=== PATIENT | male | born 1950 | race Caucasian/White ===

== ENCOUNTER 2019-08-24 18:37 | Inpatient (IN) | payer MEDICARE ==
[~2019-08-24] VITALS: Ht 172.7 cm; Wt 63.5 kg
[2019-08-24 18:51] VITALS: BP 151/66
--- NOTE | 2019-08-24 18:55 | Emergency Room Report ---
History of Present Illness General Chief Complaint: chest pain Source: Patient Present Illness HPI Patient is a 69-year-old male presents after increased left-sided chest discomfort. Patient reports having acute onset of sharp pain. He states this is been present for several hours constant. He reports having some waxing and waning to the pain. He reports having taken multiple medications without any relief of the pain. Patient onset approximately 1:00 in the afternoon. He had taken Pepcid as well as aspirin and nitroglycerin without any relief. He denies any vomiting. He reports having a prior history of smoking. He denies any prior history of hypertension or cardiac disease. He has had prior orthopedic surgeries multiple times in the past but has not had any recent surgery. He has chronic leg pain but denies any new pain or swelling Allergies: Coded Allergies: TETRACYCLINES (Verified Allergy, Intermediate, 08/24/19) OXYTETRACYCLINE (Verified Allergy, Unknown, 08/24/19) Patient History Past Medical History: see triage record Past Surgical History: other - neck, back and shoulder surgeries Reviewed Nursing Documentation: PMH: Agreed; PSxH: Agreed Review of Systems Respiratory: Reports: see HPI Cardiovascular: Reports: see HPI All Other Systems: limited Physical Exam Sp02 EP Interpretation: reviewed, normal General Appearance: normal inspection, well appearing, no apparent distress, alert, GCS 15, non-toxic Head: atraumatic ENT: normal ENT inspection, hearing grossly normal, normal voice Neck: normal inspection, full range of motion, supple, no bony tend Respiratory: normal inspection, lungs clear, normal breath sounds, no respiratory distress, no retraction, no wheezing Cardiovascular #1: regular rate, rhythm, no edema Gastrointestinal: normal inspection, normal bowel sounds, non tender, soft, no guarding, no hernia Genitourinary: no CVA tenderness Musculoskeletal: normal inspection, back normal, normal range of motion Neurologic: alert, motor strength/tone normal, pocket setter lockstitch III-XII nml as tested, oriented x3, responsive, speech normal, normal inspection Psychiatric: normal inspection, judgement/insight normal, mood/affect normal Skin: no rash Medical Decision Making Diagnostic Impression: Primary Impression: Chest pain in adult Additional Impressions: Former smoker High cholesterol Chronic back pain Chronic neck pain ER Course Patient presented for increased chest pain. Differential diagnosis include was not limited to myocardial infarction, pneumothorax, pulmonary embolism, esophageal spasm among others. Because of complexity of patient's case laboratory tests and imaging studies were ordered. EKG interpreted by me showed normal sinus rhythm with a rate of [address] or T wave changes. Patient was noted to have equal breath sounds and has normal oxygen saturation.Patient was given aspirin as he does not recall how much he took at home.Patient was discussed with Dr. Arroyo for inpatient management. Patient was noted to have recurrence of pain during the emergency department course. He did have some improvement with nitroglycerin. CT angios of the chest was ordered. Patient does report having some prior history of esophageal spasm. Patient's initial troponin was noted to be negative as was her initial repeat. Given the patient's intermittent history of symptoms patient will be admitted for further evaluation. Labs Test 08/24/19 18:55 White Blood Count 8.6 K/UL (4.8-10.8) Red Blood Count 4.49 M/UL (4.70-6.10) Hemoglobin 13.3 G/DL (14.2-18.0) Hematocrit 37.7 % (42.0-52.0) Mean Corpuscular Volume 84 FL (80-99) Mean Corpuscular Hemoglobin 29.7 PG (27.0-31.0) Mean Corpuscular Hemoglobin Concent 35.4 G/DL (32.0-36.0) Red Cell Distribution Width 10.3 % (11.6-14.8) Platelet Count 221 K/UL (150-450) Mean Platelet Volume 6.4 FL (6.5-10.1) Neutrophils (%) (Auto) 63.7 % (45.0-75.0) Lymphocytes (%) (Auto) 24.3 % (20.0-45.0) Monocytes (%) (Auto) 8.5 % (1.0-10.0) Eosinophils (%) (Auto) 2.0 % (0.0-3.0) Basophils (%) (Auto) 1.5 % (0.0-2.0) D-Dimer 0.20 mg/L FEU (0.00-0.49) Urine Color Pale yellow Urine Appearance Clear Urine pH 8 (4.5-8.0) Urine Specific [place] 1.010 (1.005-1.035) Urine Protein Negative (NEGATIVE) Urine Glucose (UA) Negative (NEGATIVE) Urine Ketones Negative (NEGATIVE) Urine Blood Negative (NEGATIVE) Urine Nitrite Negative (NEGATIVE) Urine Bilirubin Negative (NEGATIVE) Urine Urobilinogen Normal MG/DL (0.0-1.0) Urine Leukocyte Esterase Negative (NEGATIVE) Sodium Level 139 MMOL/L (136-145) Potassium Level 3.7 MMOL/L (3.5-5.1) Chloride Level 102 MMOL/L (98-107) Carbon Dioxide Level 33 MMOL/L (21-32) Anion Gap 5 mmol/L (5-15) Blood Urea Nitrogen 23 mg/dL (7-18) Creatinine 1.1 MG/DL (0.55-1.30) Estimat Glomerular Filtration Rate > 60 mL/min (>60) Glucose Level 106 MG/DL (74-106) Calcium Level 9.2 MG/DL (8.5-10.1) Total Bilirubin 0.2 MG/DL (0.2-1.0) Aspartate Amino Transf (AST/SGOT) 29 U/L (15-37) Alanine Aminotransferase (ALT/SGPT) 39 U/L (12-78) Alkaline Phosphatase 91 U/L (46-116) Troponin I 0.000 ng/mL (0.000-0.056) Pro-B-Type Natriuretic Peptide 46 pg/mL (0-125) Total Protein 7.0 G/DL (6.4-8.2) Albumin 3.8 G/DL (3.4-5.0) Globulin 3.2 g/dL Albumin/Globulin Ratio 1.2 (1.0-2.7) Lipase 158 U/L (73-393) EKG Diagnostic Results Rate: normal Rhythm: NSR ST Segments: no acute changes Status: improved Disposition: ADMITTED INPATIENT Condition: Stable Oscar Lee MD Aug 24, 2019 18:55
--- NOTE | 2019-08-24 18:59 | NUR ---
ED Nurse Note: PT WALKED IN DUE TO LEFT SIDE CP AND NON RADIATING SINCE 0130 THIS AFTERNOON. DENIES N/V OR DIZZINESS. AAO X4, AMBULATORY WITH NO RESPIRATORY DISTRESS. SPEAKS IN FULL SENTENCES. AT THE BED SIDE.
[2019-08-24] MEDS ORDERED: Omnipaue 350mg/ml 100ml vial INJ PRN (19:00)
[2019-08-24] MEDS ORDERED: Aspirin Baby 81mg ORAL ONE (19:00)
[2019-08-24 19:13] LABS: BASOPHILS % (AUTO) 1.5 % (0.0-2.0); HEMATOCRIT 37.7 % (42.0-52.0); HEMOGLOBIN 13.3 G/DL (14.2-18.0); LYMPHOCYTES % (AUTO) 24.3 % (20.0-45.0); MEAN CORPUSCULAR VOLUME 84 FL (80-99); MONOCYTES % (AUTO) 8.5 % (1.0-10.0); NEUTROPHILS % (AUTO) 63.7 % (45.0-75.0); PLATELET COUNT 221 K/UL (150-450); RED BLOOD COUNT 4.49 M/UL (4.70-6.10); RED CELL DISTRIBUTION WIDTH 10.3 % (11.6-14.8); WHITE BLOOD COUNT 8.6 K/UL (4.8-10.8)
--- NOTE | 2019-08-24 19:13 | NUR ---
HAND-OFF: Report given to ANTWAN GHOSH.
[2019-08-24] MEDS ORDERED: Nitroglycerin Subl 0.4mg tab SL PRN (19:15)
[2019-08-24] MEDS ORDERED: Morphine Sulfate 4mg/ml Inj (IV USE ONLY) IVP ONE (19:15)
[2019-08-24 19:29] LABS: ANION GAP 5 mmol/L (5-15); APPEARANCE,URINE CLEAR; BILIRUBIN, URINE NEGATIVE (NEGATIVE); BLOOD UREA NITROGEN 23 mg/dL (7-18); CALCIUM 9.2 MG/DL (8.5-10.1); CARBON DIOXIDE 33 MMOL/L (21-32); CHLORIDE 102 MMOL/L (98-107); COLOR,URINE PALE YELLOW; CREATININE 1.1 MG/DL (0.55-1.30); GLUCOSE, URINE (UA) NEGATIVE (NEGATIVE); KETONES,URINE NEGATIVE (NEGATIVE); LEUKOCYTE ESTERASE ,URINE NEGATIVE (NEGATIVE); NITRITE,URINE NEGATIVE (NEGATIVE); PH,URINE 8 (4.5-8.0); POTASSIUM 3.7 MMOL/L (3.5-5.1); PROTEIN,URINE NEGATIVE (NEGATIVE); SODIUM 139 MMOL/L (136-145); UROBILINOGEN,URINE NORMAL MG/DL (0.0-1.0)
[2019-08-24 19:42] LABS: ALANINE AMINOTRANSFERASE 39 U/L (12-78); ALBUMIN 3.8 G/DL (3.4-5.0); ALBUMIN/GLOBULIN RATIO 1.2 (1.0-2.7); ALKALINE PHOSPHATASE 91 U/L (46-116); ASPARTATE AMINO TRANSFERASE 29 U/L (15-37); BILIRUBIN,TOTAL 0.2 MG/DL (0.2-1.0)
[2019-08-24 20:10] VITALS: BP 136/66
--- NOTE | 2019-08-24 20:12 | NUR ---
Face sheet, EKG, MD dictation and clinicals faxed to [phone] (January-nurse housing case manager) as requested.
--- NOTE | 2019-08-24 20:42 | NUR ---
ER Nurse Note: All orders completed per ERMD orders. Pt back from CT, awaiting results. Pt a&ox4, VSS, RA, no signs of distress. Pt denies pain after being given nitro. Pt ambulatory, skin intact. Awaiting placement. All safety measures met; will continue to montior.
--- NOTE | 2019-08-24 21:10 | Diagnostic Imaging Report ---
EXAM: XR Chest, 1 View CLINICAL HISTORY: CP TECHNIQUE: Frontal view of the chest. COMPARISON: No relevant prior studies available. FINDINGS: Lungs: No consolidation or mass. Pleural space: No acute findings Heart: No cardiomegaly. Bones/joints: No acute findings. IMPRESSION: No acute cardiopulmonary process.
[2019-08-24 22:42] VITALS: BP 124/62
--- NOTE | 2019-08-24 22:46 | Diagnostic Imaging Report ---
EXAM: CT Angiography Chest With Intravenous Contrast CLINICAL HISTORY: CP TECHNIQUE: Axial computed tomographic angiography images of the chest with intravenous contrast. CTDI is 41 mGy and DLP is 622 mGy-cm. One or more of the following dose reduction techniques were used: automated exposure control, adjustment of the mA and/or kV according to patient size, use of iterative reconstruction technique. MIP reconstructed images were created and reviewed. COMPARISON: No relevant prior studies available. FINDINGS: Pulmonary arteries: No filling defects. Aorta: No thoracic aortic aneurysm. Lungs: No mass. Lingular subsegmental atelectasis. Pleural space: No pneumothorax. No significant effusion. Heart: No cardiomegaly. No pericardial effusion. Bones/joints: No acute fracture or dislocation. Soft tissues: Tiny stones near the gallbladder neck. Lymph nodes: No enlarged lymph nodes. IMPRESSION: 1. No pulmonary embolism. 2. Lingular subsegmental atelectasis. 3. Tiny gallstones in the neck.
--- NOTE | 2019-08-24 22:51 | NUR ---
ER Nurse Note: Report given to AUGIE Dickey in tele for continutiy of care. Pt aware of admission. Pt a&ox4, VSS, no signs of distress. All safety measures met; all belongings taken with pt.
[2019-08-24] MEDS: Morphine Sulfate 4mg/ml Inj (IV USE ONLY) IVP ONE (23:15)
[2019-08-25] VITALS: BP 115/57
[2019-08-25] MEDS ORDERED: oxyCODONE HCL/Acetaminophen 5/325mg ORAL PRN
--- NOTE | 2019-08-25 | NUR ---
NURSE NOTES: Pt arrived via gurney from ER. Got report from Radha GHOSH. Pt in stable condition. States chest pain is decreased after getting medications in the ER. Denies any n/v or SOB. Pt is fully oriented and able to answer all of my questions. Pt is ambulatory with steady gait. No s/s of distress or discomfort noted. No skin issues noted. insulation worker placed on pt running Sinus Rhythm on the monitor. Belongings list verified. VSS T:97.2 HR:63 R:16 BP:115/57 O2:98% on room air. Pt resting in bed comfortably. Bed in low and locked position, call light within reach, bedside table within reach. Continue to monitor. Orders given and placed by Dr. Arroyo.
[2019-08-25] MEDS: Morphine Sulfate 4mg/ml Inj (IV USE ONLY) IVP ONE (00:04)
[2019-08-25 04:00] VITALS: BP 113/60
--- NOTE | 2019-08-25 07:20 | NUR ---
HAND-OFF: Report given to Quinten GHOSH.
--- NOTE | 2019-08-25 07:21 | NUR ---
NURSE NOTES: Received report from AUGIE Lucio. Patient in bed resting, no active cardiac, respiratory distress noticed at this time. Patient on room air, AOx4, SR with HR 61, IV on right AC 18G, asymptomatic, patent, intact, patient denies pain at this time. Bed in lowest position, side rails upx3, call light within reach. Will continue to monitor.
[2019-08-25 08:00] VITALS: BP 135/73
[2019-08-25] MEDS ORDERED: celeBREX 200mg Cap **SURGERY PATIENTS ONLY ORAL SCH (09:00)
--- NOTE | 2019-08-25 11:35 | NUR ---
NURSE NOTES: Patient discharged to home per Dr. Arroyo. Per continue med which patient is taking at home. ID removed and placed in shredder, IV removed, statistical reporting analyst returned to electron beam photo mask technician. Family member at the bedside, taking patient via private vehicle. Patient discharged with all belongings, discharge instruction given, stated understanding of education and instruction.
--- NOTE | 2019-08-25 20:45 | History and Physical Report ---
DATE OF ADMISSION: 08/24/2019 HISTORY OF PRESENT ILLNESS: This is a 69-year-old male, who presented to hospital with left-sided chest discomfort. He stated this started yesterday after he turned over left side in bed. He was in constant pain throughout the ER stay, and this morning also, he reports ongoing pain. Overnight, he has had a correctional guard, which shows normal heart rate and rhythm without any abnormalities. His EKG is within normal range and troponin x2 is negative. The patient has a history of multiple previous lumbar surgeries and epidurals, and has underlying NSAIDs in the past. He has been cutting down NSAIDs, as he feels that his kidney function has deteriorated. He is now taking Pepcid only along with Tylenol and turmeric and he is avoiding NSAIDs. The patient has a history of GERD and has taken Protonix in the past. He has had endoscopy also, which shows inflamed esophagus. The patient denies any history of any medical conditions except as detailed above. No history of hypertension, diabetes mellitus, CAD, or asthma. ALLERGIES: Tetracycline. PAST SURGICAL HISTORY: Multiple back operations as well as shoulder surgery. REVIEW OF SYSTEMS: The patient denies any headaches, hematemesis, melena, or hematochezia. PHYSICAL EXAMINATION: GENERAL: Reveals a 69-year-old male. VITAL SIGNS: Blood pressure 130/70, heart rate is 64, respirations 18, O2 saturation 98% on room air. HEENT: Unremarkable. LUNGS: Clear breath sounds bilaterally with normal heart sounds. ABDOMEN: Soft. EXTREMITIES: There is no edema. NEUROLOGIC: Nonfocal. MUSCULOSKELETAL: There is no palpable chest wall tenderness. LABORATORY AND DIAGNOSTIC DATA: EKG, normal sinus rhythm. Telemetry overnight, normal sinus rhythm. Hemoglobin 13.3. Remainder of labs unremarkable. Creatinine is 1.1. Troponin negative x2. D-dimer negative. Urinalysis is negative. The patient underwent a CT of the chest and thorax, which showed no evidence of pulmonary embolism. There was subsegmental atelectasis and negative. IMPRESSION: 1. Musculoskeletal chest wall pain. 2. Previous lumbar and back surgeries. 3. GERD. DISCUSSION: At this time, the patient monitored overnight. His troponins are negative. He has ongoing discomfort, I suspect musculoskeletal in nature. At this point, I will discharge him and requested outpatient followup with the primary care physician, Dr. Lesa Koroma, outpatient Cardiology consult and considered. Uri Arroyo M.D. DR: SANDRA JOB#: [id number] CC:
--- NOTE | 2019-08-26 14:39 | Discharge Summary ---
Discharge Summary Discharge Summary _ DATE OF ADMISSION: 08/24/2019 DATE OF DISCHARGE: 08/25/2019 DISCHARGED BY: Dr. Arroyo REASON FOR ADMISSION: 69 years old male with past medical history of COPD, high cholesterol, former smoker, chronic back and neck pain, presented to emergency department with left -sided chest discomfort for several hours, constant , with some waxing and waning. Patient reported taking multiple medications without relief of pain. Patient reported taking aspirin and nitroglycerin without any relief . Upon evaluation vital signs were stable. Laboratory work-up revealed no leukocytosis , stable hemoglobin and hematocrit. D-dimer 0.2. Urinalysis revealed no evidence of urinary tract infection. Stable electrolytes and renal parameters. Glucose 106. Troponin negative. pro BNP 46. EKG revealed sinus rhythm , no acute ischemic changes. Chest x-ray revealed no acute cardiopulmonary pathology. CTA of the chest revealed no pulmonary embolism. Lingular subsegmental atelectasis. Tiny gallstone in the neck. Patient received aspirin and nitroglycerin in the emergency department along with analgesia . Patient subsequently admitted to telemetry floor for further management . HOSPITAL COURSE: Patient admitted to telemetry floor. Patient had history of multiply lumbar surgeries and epidural , was initially taking different NSAIDs, currently taking NSAID and Pepcid. Patient had a history of GERD and as taking Protonix in the past. Endoscopy which was done in the past , revealed inflamed esophagus. Patient likely had a musculoskeletal chest wall pain due to previous lumbar and back surgeries . Patient was monitored overnight on telemetry. Troponin was negative, and telemetry showed sinus rhythm, no acute ischemic changers. Pain was controlled. Patient was stable for discharge home . Outpatient follow-up with a primary care provider. Consider outpatient cardiology consult if discomfort/pain persists. Due to rapid and unexpected improvement in patient's condition, patient was discharged in one day. FINAL DIAGNOSES: Musculoskeletal chest wall pain Previous lumbar and back surgery GERD DISCHARGE MEDICATIONS: See Medication Reconciliation list. DISCHARGE INSTRUCTIONS: Patient was discharged home. Follow up with [facility] care provided in one week. I have been assigned to dictate discharge summary for this account. I was not involved in the patient's management. Trinity Skinner NP Aug 26, 2019 14:39
--- NOTE | 2019-08-26 15:38 | NUR ---
*-* INSURANCE *-* ALL AVAILABLE CLINICALS HAVE BEEN FAXED TO: [facility] ref#[id number] CM: [place] ph#[phone] ext [phone] fax#[phone]
--- NOTE | 2019-08-29 12:52 | Cardiology Report ---
APPROVED REPORT EKG Measurement Heart [id number] Normal sinus rhythm Normal ECG
== END 2019-08-25 11:38 | disposition home or self-care (01) | DRG 313 ==
LOC: EMR 19:05 → EDBEDREQ 22:35 → 2E 22:40
DX: R07.89 Other chest pain (principal); K21.9 Gastro-esophageal reflux disease without esophagitis
CPT/HCPCS: 36415; 71045; 71275; 80053; 81003; 83690; 83880; 84484; 85025; 85379; 93005; 96374; 96376; 99285